=== PATIENT | male | born 1965 | race American Indian/Alaskan Native ===

== ENCOUNTER 2017-07-22 13:09 | Emergency (ER) | payer BC, OTHER ==
[~2017-07-22] VITALS: Ht 182.9 cm; Wt 99.8 kg
[~2017-07-22 13:09] MED LIST: AMOCLA875 PO; AMOX500 PO; ASPI81EC PO; AZIT250 PO; BP MED; CARB10OTL MT; CARV3.125 PO; CARVEDILOL; CLIN300 PO; FLUT.05NI; GUAI600T33 PO; HYDACE5 PO; LEVFLO500 PO; LISI20; LISI5 PO; MECL25 PO; NAPR250 PO; OXYACE5T PO; PENVK500 PO; RXERYTOPTH OP; RXHYDACE PO; TOBDEXOPSU OP
[2017-07-22] MEDS ORDERED: Norco 5-325 Ta1 EACH PO (13:47)
[2017-07-22] MEDS ORDERED: Voltaren100 GM TOP (13:47)
[2017-07-22] MEDS ORDERED: IBUP800 PO (13:47)
[2017-07-22] MEDS ORDERED: Robaxin500 MG PO (13:47)
== END 2017-07-22 14:12 | disposition home or self-care (01) ==
LOC: ER 13:09
DX: M25.512 Pain in left shoulder (principal); I10 Essential (primary) hypertension; F17.210 Nicotine dependence, cigarettes, uncomplicated; Z86.73 Personal history of transient ischemic attack (TIA), and cerebral infarction without residual deficits
CPT/HCPCS: 96372; 99283; J1885

== ENCOUNTER 2018-01-17 01:33 | Observation (INO) | payer BC, OTHER ==
[~2018-01-17] VITALS: Ht 182.9 cm; Wt 92.0 kg
[~2018-01-17 01:33] MED LIST changes: +IBUP800 PO; +Norco 5-325 Ta1 EACH PO; +Robaxin500 MG PO; +Voltaren100 GM TOP
[2018-01-17 02:08] LABS: BASOPHILS ABSOLUTE AUTO 0.09 K/mm3 (0.00-0.23); BASOPHILS PERCENT AUTO 0 % (0-2); EOSINOPHILS ABSOLUTE AUTO 0.26 K/mm3 (0.00-0.68); EOSINOPHILS PERCENT AUTO 1 % (0-6); Hematocrit 49.4 % (37.0-53.0); Hemoglobin 16.8 g/dL (13.5-17.5); IMMATURE GRAN ABSOLUTE AUTO 0.13 K/mm3 (0.00-0.10); IMMATURE GRAN PERCENT AUTO 1 % (0-1); LYMPHOCYTES PERCENT AUTO 21 % (21-46); MONOCYTES ABSOLUTE AUTO 1.62 K/mm3 (0.16-1.47); MONOCYTES PERCENT AUTO 7 % (4-13); Mean Corpuscular HGB 29.3 pg (26.0-34.0); Mean Corpuscular Volume 86 fL (80-100); Mean Platelet Volume 10.4 fL (9.1-12.4); NEUTROPHILS ABSOLUTE AUTO 17.22 K/mm3 (1.96-9.15); NEUTROPHILS PERCENT AUTO 71 % (41-73); NRBC ABSOLUTE 0.02 K/mm3 (0.00-0.02); NRBC Auto 0.1 /100 WBC (0.0-0.2); Platelet Count 380 K/mm3 (150-400); RDW Coefficient Variation 15.9 % (11.7-14.2); RDW Standard Deviation 49.1 fL (35.1-46.3); Red Blood Cell Count 5.74 M/mm3 (4.30-5.90); White Blood Cell Count 24.42 K/mm3 (4.00-11.30)
[2018-01-17 02:19] LABS: Alanine Aminotransfer (ALT/SGP 40 U/L (12-78); Alk Phos 69 U/L (50-136); Anion Gap 9 mmol/L (6-16); Aspartate Aminotrans (AST/SGOT 28 U/L (12-37); Bilirubin, Total 0.4 mg/dL (0.1-1.0); Blood Urea Nitrogen 6 mg/dL (8-24); Bun/Creatinine Ratio 7.9 (12.0-20.0); CO2, Blood 24 mmol/L (21-32); Calcium, Blood 9.2 mg/dL (8.5-10.1); Chloride, Blood 109 mmol/L (98-108); Creatinine, Blood 0.76 mg/dL (0.60-1.20); Globulin, Blood 4.2 g/dL (2.2-4.0); Glomerular Filtration Rate >60 (60-); Glucose, Blood 101 mg/dL (70-99); Potassium, Blood 3.6 mmol/L (3.5-5.5); Sodium, Blood 142 mmol/L (136-145); Total Protein, Blood 8.2 g/dL (6.4-8.2)
== END 2018-01-18 08:07 | disposition home or self-care (01) ==
LOC: ER 01:33 → SURS 01:34
PROVIDERS: Emergency Medicine
DX: K56.609 Unspecified intestinal obstruction, unspecified as to partial versus complete obstruction (principal); F17.210 Nicotine dependence, cigarettes, uncomplicated; I10 Essential (primary) hypertension; Z98.890 Other specified postprocedural states
CPT/HCPCS: 36415; 74176; 80053; 85025; 96361; 96374; 96375; 96376; 99285-25; G0378; J1170; J2405; J7030

== ENCOUNTER 2019-07-04 22:55 | Emergency (ER) | payer OTHER ==
[~2019-07-04] VITALS: Ht 182.9 cm; Wt 90.7 kg
[2019-07-04] MEDS ORDERED: AMOCLA875 PO (23:20)
[2019-07-04] MEDS ORDERED: Lisinopril-Hct1 EAC4 PO ×2 (23:21)
[2019-07-05 00:03] LABS: BASOPHILS ABSOLUTE AUTO 0.06 K/mm3 (0.00-0.23); BASOPHILS PERCENT AUTO 0 % (0-2); EOSINOPHILS ABSOLUTE AUTO 0.51 K/mm3 (0.00-0.68); EOSINOPHILS PERCENT AUTO 3 % (0-6); Hematocrit 45.1 % (37.0-53.0); Hemoglobin 15.4 g/dL (13.5-17.5); IMMATURE GRAN ABSOLUTE AUTO 0.06 K/mm3 (0.00-0.10); IMMATURE GRAN PERCENT AUTO 0 % (0-1); LYMPHOCYTES ABSOLUTE AUTO 5.28 K/mm3 (0.84-5.20); LYMPHOCYTES PERCENT AUTO 29 % (21-46); MONOCYTES ABSOLUTE AUTO 1.31 K/mm3 (0.16-1.47); MONOCYTES PERCENT AUTO 7 % (4-13); Mean Corpuscular HGB 29.1 pg (26.0-34.0); Mean Corpuscular HGB Conc 34.1 g/dL (31.5-36.5); Mean Corpuscular Volume 85 fL (80-100); Mean Platelet Volume 10.2 fL (9.1-12.4); NEUTROPHILS ABSOLUTE AUTO 11.03 K/mm3 (1.96-9.15); NEUTROPHILS PERCENT AUTO 61 % (41-73); Platelet Count 365 K/mm3 (150-400); Red Blood Cell Count 5.29 M/mm3 (4.30-5.90); White Blood Cell Count 18.25 K/mm3 (4.00-11.30)
[2019-07-05 00:19] LABS: Alanine Aminotransfer (ALT/SGP 34 U/L (12-78); Albumin, Blood 3.6 g/dL (3.4-5.0); Albumin/Globulin Ratio 0.8 (0.8-1.8); Alk Phos 70 U/L (50-136); Anion Gap 7 mmol/L (6-16); Aspartate Aminotrans (AST/SGOT 25 U/L (12-37); Bilirubin, Total 0.3 mg/dL (0.1-1.0); Blood Urea Nitrogen 10 mg/dL (8-24); Bun/Creatinine Ratio 12.9 (12.0-20.0); CO2, Blood 26 mmol/L (21-32); Calcium, Blood 8.7 mg/dL (8.5-10.1); Chloride, Blood 105 mmol/L (98-108); Creatinine, Blood 0.78 mg/dL (0.60-1.20); Globulin, Blood 4.4 g/dL (2.2-4.0); Glomerular Filtration Rate >60 (60-); Glucose, Blood 115 mg/dL (70-99); Potassium, Blood 3.3 mmol/L (3.5-5.5); Sodium, Blood 138 mmol/L (136-145)
[2019-07-05] MEDS ORDERED: OXYM.05NI (00:56)
[2019-07-05] MEDS ORDERED: Motion Sickness25 M1 PO (00:56)
== END 2019-07-05 01:16 | disposition home or self-care (01) ==
LOC: ER 22:55
PROVIDERS: Emergency Medicine
DX: J32.9 Chronic sinusitis, unspecified (principal); I10 Essential (primary) hypertension; F17.210 Nicotine dependence, cigarettes, uncomplicated; Z86.73 Personal history of transient ischemic attack (TIA), and cerebral infarction without residual deficits; Z79.899 Other long term (current) drug therapy
CPT/HCPCS: 36415; 70450; 80053; 85025; 93005; 93010; 99284-25

== ENCOUNTER 2019-07-07 07:24 | Inpatient (IN) | payer OTHER ==
[~2019-07-07] VITALS: Ht 182.9 cm; Wt 90.3 kg
[~2019-07-07 07:24] MED LIST changes: +Lisinopril-Hct1 EAC4 PO; +Motion Sickness25 M1 PO; +OXYM.05NI
[2019-07-07 07:51] LABS: BASOPHILS ABSOLUTE AUTO 0.06 K/mm3 (0.00-0.23); BASOPHILS PERCENT AUTO 0 % (0-2); EOSINOPHILS ABSOLUTE AUTO 0.33 K/mm3 (0.00-0.68); EOSINOPHILS PERCENT AUTO 2 % (0-6); Hematocrit 46.7 % (37.0-53.0); Hemoglobin 15.7 g/dL (13.5-17.5); IMMATURE GRAN ABSOLUTE AUTO 0.07 K/mm3 (0.00-0.10); IMMATURE GRAN PERCENT AUTO 1 % (0-1); LYMPHOCYTES ABSOLUTE AUTO 4.39 K/mm3 (0.84-5.20); LYMPHOCYTES PERCENT AUTO 31 % (21-46); MONOCYTES ABSOLUTE AUTO 1.09 K/mm3 (0.16-1.47); MONOCYTES PERCENT AUTO 8 % (4-13); Mean Corpuscular HGB 28.8 pg (26.0-34.0); Mean Corpuscular HGB Conc 33.6 g/dL (31.5-36.5); Mean Corpuscular Volume 86 fL (80-100); NEUTROPHILS ABSOLUTE AUTO 8.28 K/mm3 (1.96-9.15); NEUTROPHILS PERCENT AUTO 58 % (41-73); Platelet Count 347 K/mm3 (150-400); RDW Coefficient Variation 15.1 % (11.7-14.2); RDW Standard Deviation 46.8 fL (35.1-46.3); Red Blood Cell Count 5.46 M/mm3 (4.30-5.90); White Blood Cell Count 14.22 K/mm3 (4.00-11.30)
[2019-07-07 08:11] LABS: Alanine Aminotransfer (ALT/SGP 38 U/L (12-78); Albumin, Blood 3.6 g/dL (3.4-5.0); Albumin/Globulin Ratio 0.9 (0.8-1.8); Alk Phos 64 U/L (50-136); Anion Gap 9 mmol/L (6-16); Aspartate Aminotrans (AST/SGOT 23 U/L (12-37); Bilirubin, Total 0.5 mg/dL (0.1-1.0); Blood Urea Nitrogen 9 mg/dL (8-24); Bun/Creatinine Ratio 12.1 (12.0-20.0); CO2, Blood 24 mmol/L (21-32); Calcium, Blood 8.7 mg/dL (8.5-10.1); Chloride, Blood 106 mmol/L (98-108); Creatinine, Blood 0.75 mg/dL (0.60-1.20); Globulin, Blood 4.1 g/dL (2.2-4.0); Glomerular Filtration Rate >60 (60-); Glucose, Blood 146 mg/dL (70-99); Potassium, Blood 3.5 mmol/L (3.5-5.5); Sodium, Blood 139 mmol/L (136-145); Total Protein, Blood 7.7 g/dL (6.4-8.2)
[2019-07-07 10:01] LABS: Source, Urine Catheter
[2019-07-07 10:10] LABS: Bilirubin, Urine Neg (Neg); Blood, Urine Neg (Neg); Glucose Qualitative, Urine Neg (Neg); Ketones, Urine Neg (Neg); Leukocyte Esterase, Urine Neg (Neg); Nitrite, Urine Neg (Neg); Protein, Urine 1+ (Neg); Urobilinogen, Urine NORM (Normal)
[2019-07-07 10:11] LABS: Appearance, Urine Clear (Clear); Color, Urine Amber (P-Yellow)
[2019-07-07 10:32] LABS: U Amphetamine Screen Not Detected; U Barbituate Screen Not Detected; U Benzodiazapine Screen Not Detected; U Buprenorphine Screen Not Detected; U Cannabinoids Screen Not Detected; U Cocaine Screen Not Detected; U Methadone Screen Not Detected; U Methamphetamine Screen Not Detected; U Opiates Screen Not Detected; U Oxycodone Screen Not Detected; U Phencyclidine Screen Not Detected; U Propoxyphene Screen Not Detected
[2019-07-07 11:01] LABS: International Normalized Ratio 0.98; Prothrombin Time Results 10.5 Sec (9.7-11.5)
[2019-07-07 12:02] LABS: Glucose, CSF 71 mg/dL (40-70)
[2019-07-07 12:15] LABS: RBC Count, CSF 63 /mm3 (0-0); WBC Count, CSF 8 /mm3 (0-5)
[2019-07-07 12:16] LABS: Appearance, CSF Clear (Clear); Color, CSF No Color (No Color)
[2019-07-07 13:27] LABS: Lymphocytes, CSF 78 % (40-80); Monocytes, CSF 22 % (15-45)
[2019-07-07 13:48] LABS: Adenovirus Not Detected (NOT DETECT); Bordetella pertussis Not Detected (NOT DETECT); Chlamydophila pneumoniae Not Detected (NOT DETECT); Coronavirus 229E Not Detected (NOT DETECT); Coronavirus HKU1 Not Detected (NOT DETECT); Coronavirus NL63 Not Detected (NOT DETECT); Coronavirus OC43 Not Detected (NOT DETECT); Human Metapneumovirus Not Detected (NOT DETECT); Human Rhinovirus/Enterovirus Not Detected (NOT DETECT); Influenza A/2009-H1 Not Detected (NOT DETECT); Influenza A/H1 Not Detected (NOT DETECT); Influenza A/H3 Not Detected (NOT DETECT); Influenza B Not Detected (NOT DETECT); Mycoplasma pneumoniae Not Detected (NOT DETECT); Parainfluenza Virus 1 Not Detected (NOT DETECT); Parainfluenza Virus 2 Not Detected (NOT DETECT); Parainfluenza Virus 3 Not Detected (NOT DETECT); Parainfluenza Virus 4 Not Detected (NOT DETECT); Respiratory Syncytial Virus Not Detected (NOT DETECT)
[2019-07-07 14:29] LABS: pH Blood Arterial 7.38 (7.35-7.45)
[2019-07-07 14:30] LABS: PCO2 Arterial 42.4 mmHg (35-45); PO2 Arterial 190 mmHg (80-100)
--- NOTE | 2019-07-07 14:54 | NUR ---
ARRIVAL TO ICU 1205 - PT ARRIVES TO ICU AT THIS TIME FROM ED. HE IS INTUBATED AND SEDATED. VENT AC 14, 500, PEEP 5, FIO2 50%. LUNG SOUNDS CLEAR. PROPOFOL GTT INFUSING AT 40 MCG/KG. NO S/S PAIN. TEMP 99.2. ABX INFUSING. MIV NS STARTED AT 150 ML/HR PER ORDER. BUE RESTRAINED. PT RESPONDING TO PAINFUL STIMULI IN ALL EXTREMITIES. PUPILS REACTIVE BILATERALLY. PT WAS MOVING EXTREMITIES SPONTANEOUSLY PRIOR TO INCREASING SEDATION. BECKER SECURED AND PATENT. WILL JAVONUE TO MONITOR.
--- NOTE | 2019-07-07 16:06 | NUR ---
SEDATION VACATION SEDATION OFF FOR TOTAL OF 40 MINUTES. PT UNABLE TO FOLOW COMMANDS. DID NOT OPEN EYES SPONTANEOUSLY. TEMP OF 101. PT RIGID WITH POSTURING ON R SIDE. HAD SPASTIC TENSE MOVEMENTS OF ALL EXTREMITIES. MD PARRISH AT BEDSIDE TO WITNESS SYMPTOMS. LORAZEPAM 2 MG IVP GIVEN 2X PER MD REQUEST. SEDATION NOW RESTARTED. NURSING HAND PRESSER CONTACTED FOR STAT EEG. TYLENOL GIVEN THROUGH OGT; WILL MONITOR TEMP. WILL OBTAIN CTA. NO NEUROLOGY HAND FORMER; MD AWARE. WILL CONTINUE TO MONITOR.
--- NOTE | 2019-07-07 18:17 | NUR ---
SHIFT SUMMARY UPDATED ON TELEPHONE AT 1814; EXPLAINED TO HER THAT SHE IS UNABLE TO VISIT DUE TO CURRENT CIRCUMSTANCES. IS UPSET ABOUT INABIILTY TO VISIT. EEG IN PROGRESS AT THIS TIME. PT TOLERATED GOING DOWN FOR CTA; UE TO RESULTS, PT WILL BE GOING [facility] FOR TRANSFER AND CARE OF NEUROLOGY. WILL CALL AND FURTHER UPDATE . VSS. REMAINS IN NSR, HR 80S. BP WNL. TEMP 100.5 AT THIS TIME. WILL GIVE BEDSIDE, HANDOFF REPORT TO SALVADOR HOUSTON.
--- NOTE | 2019-07-07 19:35 | NUR ---
REPORT AND HANDOFF REPORT CALLED TO [facility] ED FOR HANDOFF REPORT. PT AWAITING TRANSPORT FROM [facility]. REPORT ALSO GIVEN TO BRAXTON HOUSTON.
--- NOTE | 2019-07-07 20:24 | NUR ---
ASSUMED CARE/TRANSFER NOTE: ASSUMED CARE OF PT AT 1900, RECEVIED REPORT FROM JETHRO HOUSTON. PT ON VENT WITH SETTINGS @ AC16/500/5/30%, SPO2 GREATER THAN 90%. PT ON NS 150ML/HR, WITH PROPOFOL AT Y SITE GOING @ 10MCG/KG/MIN. 300MG OF ASPIRIN GIVEN RECTALLY ORDERED. 2009: EMS ARRIVED TO UNIT, REPORT GIVEN NAYELI Mendes, FROM [facility]. EMS WAS ADVISED TO KEEP SBP ABOVE 150. BOTH IV PUMPS WERE PROGRAMMED FOR TRANSFER. PT TRANSFERED TO ZOLL MONITOR AND ZOLL VENTILATOR. RT AT BEDSIDE. EMS INSTRUCTED TO TAKE PT TO [facility] ED. PT LEFT UNIT AT 2021, [facility] NOTIFIED WELL PT'S .
== END 2019-07-07 20:22 | disposition short-term general hospital (02) | DRG 64 ==
LOC: ER 07:24 → ICUW 11:43
PROVIDERS: Emergency Medicine; Internal Medicine Pulmonary Disease; Physician Assistant; ADMIT Internal Medicine
PROC: 0BH17EZ Insertion of Endotracheal Airway into Trachea, Via Natural or Artificial Opening (ICD-10-PCS; principal; 2019-07-07)
PROC: 5A1935Z Respiratory Ventilation, Less than 24 Consecutive Hours (ICD-10-PCS; 2019-07-07)
PROC: 009U3ZX Drainage of Spinal Canal, Percutaneous Approach, Diagnostic (ICD-10-PCS; 2019-07-07)
DX: I63.22 Cerebral infarction due to unspecified occlusion or stenosis of basilar artery (principal); J96.00 Acute respiratory failure, unspecified whether with hypoxia or hypercapnia; G81.91 Hemiplegia, unspecified affecting right dominant side; J32.4 Chronic pansinusitis; R56.9 Unspecified convulsions; H66.43 Suppurative otitis media, unspecified, bilateral; I10 Essential (primary) hypertension; Z86.73 Personal history of transient ischemic attack (TIA), and cerebral infarction without residual deficits; F17.200 Nicotine dependence, unspecified, uncomplicated
CPT/HCPCS: 0099U; 31500; 31720; 36600; 51702; 62270; 70450; 70496; 70498; 71045; 80053; 82803; 82945; 83605; 83690; 84145; 84157; 85025; 85610; 85651; 85730; 86140; 87070; 87205; 89051; 93005; 93010; 94002; 96365-59; 96375-59; 96376-59; 99285-25; A9270; J0696; J1644; J1953; J1956; J2060; J2704; J3370; J7030; J7050; Q9967